=== PATIENT | female | born 1960 | race Caucasian/White ===

== ENCOUNTER 2023-04-21 23:40 | Emergency (ER) | payer OTHER ==
[~2023-04-21] VITALS: Ht 170.2 cm; Wt 117.9 kg
[~2023-04-21 23:40] MED LIST: CEPH250C16 PO; CLIN150C1 PO
[2023-04-21 23:44] VITALS: BP 142/78; PULSE 112; RESP 18; TEMP 98.7; O2SAT 98
--- NOTE | 2023-04-21 23:50 | NUR ---
TO BED 9 FROM TRIAGE
--- NOTE | 2023-04-21 23:51 | NUR ---
PT AMBULATORY TO BED 9
[2023-04-22] MEDS ORDERED: diphenhydrAMINE 50 MG CAP PO ONE (00:05)
[2023-04-22] MEDS ORDERED: PRED20TA5 PO (00:21)
[2023-04-22] MEDS ORDERED: DIPH25TA53 PO (00:21)
[2023-04-22 00:26] VITALS: BP 142/78; PULSE 72; RESP 20; TEMP 98.1; O2SAT 96
--- NOTE | 2023-04-22 00:26 | NUR ---
Patient discharged with v/s stable. Written and verbal after care instructions given and explained. Patient alert, oriented and verbalized understanding of instructions. Ambulatory with steady gait. All questions addressed prior to discharge. ID band removed. Patient advised to follow up with PMD. Rx of BENADRYL, PREDNISONE given. Patient educated on indication of medication including possible reaction and side effects. Opportunity to ask questions provided and answered.
== END 2023-04-22 00:26 | disposition home or self-care (01) ==
LOC: MED 23:40
DX: R21 Rash and other nonspecific skin eruption (principal); I10 Essential (primary) hypertension; F17.200 Nicotine dependence, unspecified, uncomplicated; Z79.2 Long term (current) use of antibiotics
CPT/HCPCS: 99283

== ENCOUNTER 2024-01-01 21:02 | Emergency (ER) | payer OTHER ==
[~2024-01-01] VITALS: Ht 170.2 cm; Wt 106.6 kg
[~2024-01-01 21:02] MED LIST changes: +DIPH25TA53 PO; +PRED20TA5 PO
[2024-01-01 21:20] VITALS: BP 150/80; PULSE 89; RESP 20; TEMP 98.2; O2SAT 98
[2024-01-01] MEDS ORDERED: CEPH-588 PO (21:59)
[2024-01-01] MEDS ORDERED: cefTRIAXone 1,000 MG VIAL ONE (22:02)
[2024-01-01] MEDS ORDERED: LIDOCAINE MPF 1% 5 ML ONE (22:02)
[2024-01-01 22:05] VITALS: BP 150/80; PULSE 89; RESP 20; TEMP 98.2; O2SAT 98
[2024-01-01] MEDS: cefTRIAXone 1,000 MG in LIDOCAINE MPF 1% 2.1 ML IM ONE (22:08)
== END 2024-01-01 22:05 | disposition home or self-care (01) ==
LOC: MED 21:02
DX: L03.115 Cellulitis of right lower limb (principal); I11.0 Hypertensive heart disease with heart failure; I50.9 Heart failure, unspecified; E11.9 Type 2 diabetes mellitus without complications; F17.200 Nicotine dependence, unspecified, uncomplicated; Z79.899 Other long term (current) drug therapy
CPT/HCPCS: 96372; 99283; J0696; J2001

== ENCOUNTER 2024-01-30 18:30 | Emergency (ER) | payer OTHER ==
[~2024-01-30] VITALS: Ht 170.2 cm; Wt 108.9 kg
[~2024-01-30 18:30] MED LIST changes: +CEPH-588 PO
[2024-01-30 19:02] VITALS: BP 160/95; PULSE 98; RESP 18; TEMP 97.2
== END 2024-01-30 19:53 | disposition left against medical advice (07) ==
LOC: MED 18:30
DX: L03.115 Cellulitis of right lower limb (principal); R22.41 Localized swelling, mass and lump, right lower limb; I11.0 Hypertensive heart disease with heart failure; J44.9 Chronic obstructive pulmonary disease, unspecified; E11.9 Type 2 diabetes mellitus without complications; Z79.4 Long term (current) use of insulin; Z79.899 Other long term (current) drug therapy
CPT/HCPCS: 99281